=== PATIENT | female | born 1995 | race Two or more races ===

== ENCOUNTER 2016-04-19 17:10 | Outpatient (CLI) | payer OTHER ==
[2016-04-19 17:46] VITALS: BMI 31.9
== END 2016-04-19 18:34 | disposition home or self-care (01) ==
LOC: FBCOUT 17:10 → FBC 17:14 → FBCOUT 18:34 → MERGE 04-30 08:39
PROVIDERS: ATTEND Family Medicine
DX: O47.9 False labor, unspecified (principal); Z3A.00 Weeks of gestation of pregnancy not specified

== ENCOUNTER 2016-04-23 20:25 | Outpatient (CLI) | payer OTHER ==
[2016-04-23 20:55] VITALS: BMI 31.1
[2016-04-23] MEDS ORDERED: PROMETHAZINE HCL 25 MG/ML VIAL IM ONE (23:00)
[2016-04-23] MEDS ORDERED: MORPHINE SULFATE 10 MG/ML SYRINGE IM ONE (23:01)
== END 2016-04-23 23:55 | disposition home or self-care (01) ==
LOC: FBC 20:25 → FBCOUT 20:25
PROVIDERS: ATTEND Family Medicine
DX: O47.9 False labor, unspecified (principal); Z3A.00 Weeks of gestation of pregnancy not specified
CPT/HCPCS: 96372; 59025; 81002; J2270; J2550; G0463

== ENCOUNTER 2016-04-24 16:48 | Inpatient (IN) | payer OTHER ==
[2016-04-24] MEDS ORDERED: OXYTOCIN 10 UNITS/ML VIAL ONE (16:53)
[2016-04-24] MEDS ORDERED: MINERAL OIL 25 ML BOT ONE (16:54)
[2016-04-24] MEDS ORDERED: LIDOCAINE 1% (PRES FREE) 30 ML VIAL ONE (16:54)
[2016-04-24] MEDS ORDERED: SODIUM CHLORIDE 0.9% FLUSH 10 ML ONE (16:54)
[2016-04-24] MEDS ORDERED: PUMP TUBING ONE (16:54)
[2016-04-24] MEDS ORDERED: IV START KIT ONE (16:54)
[2016-04-24] MEDS ORDERED: OXYTOCIN IN LR 0 ML IV ONE (16:54)
[2016-04-24] MEDS ORDERED: LIDOCAINE Viscous 2% 15 ML UDCUP ONE (16:54)
[2016-04-24] MEDS ORDERED: OXYTOCIN 10 UNITS/ML VIAL IM ONE (17:52)
[2016-04-24] MEDS ORDERED: DIPHTH,PERTUSS(ACELL),TET VAC 0.5 ML VIAL IM V ONE (18:06)
[2016-04-24] MEDS ORDERED: BENZOCAINE/MENTHOL 60 APPLIC/BOT TP PRN (18:06)
[2016-04-24] MEDS ORDERED: HYDROCODONE/ACETAMINOPHEN 5/325MG TABLET PO PRN (18:06)
[2016-04-24] MEDS ORDERED: IBUPROFEN 800 MG TABLET PO PRN (18:06)
--- NOTE | 2016-04-24 18:37 | PCMAN ---
OB Admission Note - History : 1 Term: 0 : 0 Abortions (S&E): 0 Livin EDC:: 04/30/16 Gestational Age (weeks): 39 Days (#/7): 1 Admit Cervical Dilation:: 9.5 Admit Cervical Effacement (%):: 100 Admit Station:: 0 Admit Presentaton:: vertex Membrane Status: Ruptured Rupture (Date): 04/24/16 Rupture (Time): 16:00 Membranes Comment:: clear fluid Labor Onset (Date): 04/24/16 Labor Onset (Time): 09:00 Contractions: Yes Contraction Frequency:: Q2 mins Heart Rate:: 140 Status:: Category 2 Summary of Course:: 20 yo at 39 1/7 wks, presented to triage in advanced labor, 9 cm dilated. GBS neg. Patient had multiple UTIs in , on Keflex for UTI prophylaxis. Was admitted for pyelonephritis at 13 wks. PMHx: frequent UTI, pyelo PSHx: neg Meds: PNV, Keflex SOCHx: highschool grad, lives with FOB and his parents - Labs Blood Type: O (+) positive Hct/Hgb:: 38.3 Rubella Status: Immune GBS Status: Negative Abnormal Labs: None - Review of Systems Denies CP, TAPIA, RUQ pain, reports good movement. - Physical Exam General: Afebrile, Mild Distress Psych/Mental Status: Mood/Affect Appropriate Neurological: Grossly Intact, Normal Speech HEENT: Atraumatic, Mucous membr. moist/pink Lungs: Clear to Auscultation Bilaterally, Normal Air Movement Cardiovascular: Regular Rate and Rhythm, Normal S1, Normal S2 Genitourinary: Normal Female Genitalia Skin: Normal Color, Warm, Dry - Problems (1) Active labor at term Status: Acute Code: [id number] Assessment/Plan: Patient admitted in advanced active labor, GBS neg Went on to have , no complications No time for IV placement or epidural See delivery note Will start routine PP care
[2016-04-24] MEDS ORDERED: LIDOCAINE 1% (PRES FREE) 30 ML VIAL IF ONE (18:41)
--- NOTE | 2016-04-24 18:44 | PCMDEL ---
Delivery Note - Labor 1st stage (hr/min):: 8 hrs 8 min 2nd stage (hr/min):: 27 min 3rd stage (hr/min):: 5 min Total (hr/min):: 8 hrs 35 min Pushed (hr/min):: 25 mins - Delivery Delivery (Date): 04/24/16 Delivery (Time): 17:35 Gender: Female Presentation: Cephalic Position: OA Umbilical Cord: 3 Vessel Delayed Cord Clamping:: < 1-2 min 1 Minute Total: 9 5 Minute Total: 9 Placenta:: 17:40 EBL:: 300 mL Perineum:: 1st degree perineal laceration Suture:: 3-0 Vicryl Anesthesia/Meds:: Lidocaine 1% Length ROM:: 1 hr 35 min Comments:: of NB girl, apgars 9/9. Vigorous , handed to mom. Cord clamped and cut after >1 min delay. Cord blood obtained. Placenta delivered and grossly normal. She had some brisk bleeding initially. pitocin IM 10 units was given. Patient also noted to be voiding urine with fundal massage so straight cath done , only 50 mL of urine voided. FF with massage and bleeding was controlled. 1st degree lac repaired with 3-0 Vicryl. QBL 300 mL.
[2016-04-24 20:55] VITALS: BMI 31.5
[2016-04-24] MEDS: LANOLIN 50 APPLIC/7G TUBE TP PRN (21:28)
[2016-04-25 06:10] LABS: HEMATOCRIT 30.9 % (37.0-47.0); HEMOGLOBIN 10.3 gm/l (12.0-16.0)
[2016-04-25] MEDS: LANOLIN 50 APPLIC/7G TUBE TP PRN (09:42)
--- NOTE | 2016-04-25 09:43 | PDOC44 ---
- Subjective Day: 1 Reports Pain Tolerable - Objective Temp Pulse Resp BP Pulse Ox 98.0 F 80 14 128/62 04/25/16 03:32 04/25/16 03:32 04/25/16 03:32 04/25/16 03:32 Lab Results 04/25/16 05:15 Hgb 10.3 L Hct 30.9 L Current Medications Generic Name Dose Route Start Last Admin Trade Name Freq PRN Reason Stop Dose Admin Acetaminophen/Hydrocodone Bitart 1 - 2 tab 04/24/16 18:06 [place] 5/325 PO Q4H PRN Pain (Moderate) Benzocaine/Menthol 1 applic 04/24/16 18:06 Dermoplast TP PRN PRN Patient Comfort Emollient Ointment 1 applic 04/24/16 18:06 04/24/16 21:28 [id number] TP 1 tube PRN PRN Administration sore nipples Ibuprofen 800 mg 04/24/16 18:06 Motrin PO Q6H PRN Pain (Mild) Sodium Chloride 10 ml 04/24/16 18:06 Normal Saline 10ml Flush IV PRN PRN IV Flush - Physical Exam General: Afebrile Psych/Mental Status: Mood/Affect Appropriate, Judgment/Insight Intact Neurological: Alert, Oriented x 4 Lungs: Clear to Auscultation Bilaterally, Normal Air Movement Cardiovascular: Regular Rate and Rhythm Fundus: Firm, Below Umbilicus Abdomen: Hypoactive Bowel Sounds - Problems:Assessment/Plan (1) Vaginal delivery Status: Acute Assessment/Plan: Doing well Normal exam Encourage Continue routine care Anticipate discharge tomorrow
[2016-04-25] MEDS: IBUPROFEN 100 MG/5 ML PO PRN (12:30)
[2016-04-25] MEDS ORDERED: LACTATED RINGERS 1,000 ML ONE (13:03)
[2016-04-26] MEDS: IBUPROFEN 100 MG/5 ML PO PRN (02:34)
[2016-04-26 09:00] VITALS: BP 106/61
--- NOTE | 2016-04-26 12:08 | PDOC39B ---
Hospital Course: ADMIT DATE: 04/24/16 DISCHARGE DATE: 04/26/16 ADMISSION DIAGNOSES: term iup, active labor. PROCEDURES: HISTORY OF PRESENT ILLNESS: 20 year old G1 T0 L0 at 39 weeks 1 days presenting with active labor. HOSPITAL COURSE: The patient presented in active labor and had . By day of discharge the patient is ambulating, eating, voiding, and passing flatus without difficulty. Pain is controlled and lochia is appropriate. She is breast feeding with some difficulty and has been working with . - Physical Exam Vital Signs: Temp Pulse Resp BP Pulse Ox 97.9 F 84 16 106/61 04/26/16 08:55 04/26/16 08:55 04/26/16 08:55 04/26/16 08:55 - Discharge Diagnosis (1) Vaginal delivery Status: Acute Assessment/Plan: Doing well Normal exam Encourage Continue routine care DC home today. - Discharge Plan Condition: Good Disposition: Home Prescriptions: Docusate Sodium [Colace] 100 mg PO DAILY #30 cap Ibuprofen [Children's Motrin] 100 mg PO Q6-8H #120 ml Follow-Up: Adolfo Gusman PA-C [Primary Care Provider] - In 6 weeks
== END 2016-04-26 14:20 | disposition home or self-care (01) | DRG 775 ==
LOC: FBC 16:48 → FBCOUT 16:48 → FBC 16:55
PROVIDERS: ADMIT Family Medicine; ATTEND Family Medicine
PROC: 10E0XZZ Delivery of Products of Conception, External Approach (ICD-10-PCS; principal; 2016-04-24)
PROC: 0HQ9XZZ Repair Perineum Skin, External Approach (ICD-10-PCS; 2016-04-24)
DX: O70.0 First degree perineal laceration during delivery (principal); Z3A.39 39 weeks gestation of pregnancy; Z37.0 Single live birth; Z87.440 Personal history of urinary (tract) infections

== ENCOUNTER 2016-04-27 15:56 | Outpatient (CLI) | payer OTHER | END 2016-04-27 15:57 | disposition home or self-care (01) | LOC: BABIESSH 15:56 | PROVIDERS: ATTEND Family Medicine | DX: Z39.1 Encounter for care and examination of lactating mother (principal) ==

== ENCOUNTER 2016-04-29 16:10 | Outpatient (CLI) | payer OTHER | END 2016-04-29 16:11 | disposition home or self-care (01) | LOC: BABIESSH 16:10 | PROVIDERS: ATTEND Family Medicine | DX: Z39.1 Encounter for care and examination of lactating mother (principal) ==

== ENCOUNTER 2016-05-06 16:02 | Outpatient (CLI) | payer OTHER | END 2016-05-06 16:03 | disposition home or self-care (01) | LOC: BABIESSH 16:02 | PROVIDERS: ATTEND Family Medicine | DX: Z39.1 Encounter for care and examination of lactating mother (principal) ==